=== PATIENT | female | born 1955 | race Caucasian/White ===

== ENCOUNTER → 2018-01-01 09:11 | Outpatient (CLI) | payer BC | END | disposition home or self-care (01) | LOC: D.RAD 09:00 | DX: K22.70 Barrett's esophagus without dysplasia (principal) ==

== ENCOUNTER → 2018-01-06 20:44 | Outpatient (CLI) | payer BC | END | disposition home or self-care (01) | LOC: D.MAMMO 13:45 | DX: Z12.31 Encounter for screening mammogram for malignant neoplasm of breast (principal) ==

== ENCOUNTER → 2018-02-02 10:32 | Outpatient (CLI) | payer BC | END | disposition home or self-care (01) | LOC: D.RAD 10:32 | DX: R09.89 Other specified symptoms and signs involving the circulatory and respiratory systems (principal); J01.90 Acute sinusitis, unspecified ==

== ENCOUNTER 2019-01-26 09:00 | Outpatient (CLI) | payer BC | END 2019-01-26 10:00 | disposition home or self-care (01) | LOC: D.MAMMO 09:00 | PROVIDERS: ATTEND Family Medicine | DX: Z12.31 Encounter for screening mammogram for malignant neoplasm of breast (principal) ==

== ENCOUNTER 2019-04-03 20:19 | Emergency (ER) | payer BC ==
[~2019-04-03] VITALS: Ht 167.6 cm; Wt 67.1 kg
[2019-04-03 20:26] VITALS: Ht 167.6 cm; Wt 67.1 kg
[2019-04-03] MEDS ORDERED: OMEPRAZOLE40 MG PO (20:27)
[2019-04-03 21:58] VITALS: BP 141/99
== END 2019-04-03 21:58 | disposition home or self-care (01) ==
LOC: D.ER 20:19
DX: S61.213A Laceration without foreign body of left middle finger without damage to nail, initial encounter (principal); W45.8XXA Other foreign body or object entering through skin, initial encounter; Y93.G9 Activity, other involving cooking and grilling; K21.9 Gastro-esophageal reflux disease without esophagitis

== ENCOUNTER → 2020-01-06 09:23 | Outpatient (CLI) | payer BC ==
[~2020-01-06 09:23] MED LIST: OMEPRAZOLE40 MG PO
[2020-01-06 10:15] LABS: BASOPHILS 0.6 % (0-2); EOSINOPHILS 3.8 % (0-7); HEMATOCRIT 40.7 % (36.0-48.0); HEMOGLOBIN 13.5 g/dL (12-16); IMMATURE GRANULOCYTES 0.1 % (0-5); LYMPHOCYTES 18.8 % (15-50); MCH 30.3 pg (26.0-34.0); MCHC 33.2 g/dL (31.0-37.0); MCV 91.3 fL (80.0-100.0); MEAN PLATELET VOLUME 9.5 fL (7.4-10.4); MONOCYTES 6.1 % (2-11); NEUTROPHILS 70.6 % (40-80); PLATELET COUNT 295 10x3/uL (130-400); RBC 4.46 10x6/uL (4.00-5.40); RDW 12.9 % (11.5-14.5); WBC 8.3 10x3/uL (4.8-10.8)
[2020-01-06 10:39] LABS: ALBUMIN 4.2 g/dL (3.4-5.0); ALKALINE PHOSPHATASE 79 U/L (30-120); ALT (SGPT) 25 U/L (10-68); BILIRUBIN - TOTAL 1.14 mg/dL (0.2-1.3); CALC OSMOLALITY 265 mosm/kg (275-300); CALCIUM 9.4 mg/dL (8.5-10.1); CARBON DIOXIDE 30.2 mmol/L (21.0-32.0); CHLORIDE - SERUM 99 mmol/L (98-107); CHOL - HDL RATIO 2.8 ratio (2.3-4.1); CHOLESTEROL, TOTAL 215 mg/dL (0-200); CREATININE - SERUM 0.8 mg/dL (0.6-1.3); GLUCOSE 111 mg/dL (74-106); HDL CHOLESTEROL 76 mg/dL (32-96); LDL CHOLESTEROL 126 mg/dL (0-100); LDL-HDL RATIO 1.7 ratio (1.5-3.5); POTASSIUM - SERUM 4.5 mmol/L (3.5-5.1); PROTEIN - SERUM 7.6 g/dL (6.4-8.2); SODIUM 133 mmol/L (136-145); THYROID STIMULATING HORMONE 0.59 uIU/mL (0.36-3.74); TRIGLYCERIDE 67 mg/dL (30-200); UREA NITROGEN 10 mg/dL (7-18); eGFR NON AFRICAN AMERICAN 76 mL/min (90-120)
== END | disposition home or self-care (01) ==
LOC: D.LAB 09:23
PROVIDERS: ATTEND Family Medicine
DX: R73.9 Hyperglycemia, unspecified (principal); E78.5 Hyperlipidemia, unspecified; R79.89 Other specified abnormal findings of blood chemistry; R68.89 Other general symptoms and signs; E03.9 Hypothyroidism, unspecified